=== PATIENT | female | born 1985 | race Caucasian/White ===

== ENCOUNTER 2017-09-21 09:53 | Emergency (ER) | payer SELFPAY ==
[2017-09-21] MEDS ORDERED: IBUPROFEN 400 MG TAB ONE (10:48)
--- NOTE | 2017-09-21 12:12 | RAD REPORT ---
EXAM DESCRIPTION: RAD - Ankle Left 3 View - 09/21/2017 11:55 am CLINICAL HISTORY: Trauma to left ankle and foot. COMPARISON: None. FINDINGS: Left ankle and left foot, multiple projections. No acute fracture or dislocation seen. Tiny calcaneal spurs are present.
--- NOTE | 2017-09-21 12:18 | EDPHYS ---
Physician Documentation [facility] Name: Carissa Carrera Age: 31 yrs Sex: Female : 1985 Arrival Date: 09/21/2017 Time: 09:59 Bed 11 Private MD: ED Physician Alex Gamble HPI: 09/21 10:45 This 31 yrs old Female presents to ER via Wheelchair with complaints of Foot cp Injury. 10:45 The patient presents with an injury, pain, that is acute, tenderness. The complaints cp affect the left lateral ankle and dorsum of left foot. Context: resulted from a mis-step, on skateboard, the patient is not able to bear weight, the patient is not able to ambulate. 10:45 Onset: The symptoms/episode began/occurred this morning. 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 - Social history:: Smoking status: Patient uses tobacco products, smokes one-half pack cigarettes per day. ROS: 11:00 Constitutional: Negative for body aches, chills, fever, poor PO intake. cp 11:00 Eyes: Negative for injury, pain, redness, and discharge. cp 11:00 ENT: Negative for ear pain, sore throat, difficulty swallowing, difficulty handling secretions. 11:00 Cardiovascular: Negative for chest pain, edema, palpitations. 11:00 Respiratory: Negative for cough, shortness of breath, wheezing. 11:00 Abdomen/GI: Negative for abdominal pain, vomiting, diarrhea, constipation. 11:00 Back: Negative for pain at rest, pain with movement. 11:00 MS/extremity: Positive for pain, tenderness, of the dorsum of left foot and left lateral ankle, Negative for paresthesias. 11:00 Skin: Negative for cellulitis, rash. 11:00 All other systems are negative. Exam: 11:07 Constitutional: The patient appears in no acute distress, alert, awake, well developed, cp well nourished. 11:07 Head/Face: Normocephalic, atraumatic. cp 11:07 Eyes: Periorbital structures: appear normal, Conjunctiva: normal, no exudate, no injection, Lids and lashes: appear normal, bilaterally. 11:07 ENT: External ear(s): are unremarkable, Nose: is normal, Mouth: is normal, Posterior pharynx: is normal, airway is patent. 11:07 Chest/axilla: Inspection: normal. 11:07 Cardiovascular: Rate: normal, Rhythm: regular. 11:07 Respiratory: the patient does not display signs of respiratory distress, Respirations: normal, no use of accessory muscles, no retractions, no splinting, no tachypnea, labored breathing, is not present. 11:07 Abdomen/GI: Exam negative for discomfort, distension, guarding, Inspection: abdomen appears normal. 11:07 Back: pain, is absent, ROM is normal. 11:07 Musculoskeletal/extremity: Extremities: grossly normal except: noted in the left lateral ankle and proximal left foot dorsal side: pain, tenderness, There is no evidence of deformity, Perfusion: the extremity is normally perfused throughout, Sensation intact. 11:07 Skin: cellulitis, is not appreciated, no rash present. Vital Signs: 10:12 BP 106 / 63; Pulse 68; Resp 16; Temp 98; Pulse Ox 100% on R/A; Pain 10/10; hb Procedures: 12:15 Splinting: Splint applied to left foot and left ankle using walking boot. applied by cp nurse. Examined by me, post splint application: neurovascular intact, Patient tolerated well. 12:15 Crutch training provided to patient and/or family. Return demonstration given. cp MDM: 10:19 Patient medically screened. cp 11:00 Differential diagnosis: dislocation, closed fracture, tendonitis, sprain. cp 12:14 Data reviewed: vital signs, nurses notes, radiologic studies, plain films. cp 12:15 Counseling: I had a detailed discussion with the patient and/or guardian regarding: the cp historical points, exam findings, and any diagnostic results supporting the discharge/admit diagnosis, radiology results, to return to the emergency department if symptoms worsen or persist or if there are any questions or concerns that arise at home. 12:15 Response to treatment: the patient's symptoms have mildly improved after treatment, and cp as a result, I will discharge patient. 09/21 10:40 Order name: XRAY Foot LEFT 3 View cp 09/21 10:40 Order name: XRAY Ankle LEFT 3 view cp 09/21 12:01 Order name: Walking boot; Complete Time: 12:43 cp 09/21 12:01 Order name: Crutches; Complete Time: 12:43 cp Administered Medications: 10:50 Drug: Ibuprofen 800 mg Route: PO; iw 11:40 Follow up: Response: No adverse reaction; Pain is decreased hb Disposition: 09/21/17 12:17 Discharged to Home. Impression: Unspecified sprain of left foot, Sprain of ankle - Left. - Condition is Stable. - Discharge Instructions: Ankle Sprain, Foot Sprain. - Prescriptions for Naprosyn 500 mg Oral Tablet - take 1 tablet by ORAL route 2 times per day take with food; 20 tablet. - Medication Reconciliation Form, Thank You Letter, Antibiotic Education, Prescription Opioid Use form. - Follow up: Private Physician; When: 5 - 6 days; Reason: Recheck today's complaints. - Problem is new. - Symptoms have improved. Addendum: 10/06/2017 19:43 Co-signature as Attending Physician, Alex Gamble MD I agree with the assessment and k dr plan of care. Signatures: Dispatcher [employer] EDND Alex Gamble MD MD kdr Diamond Luna RN RN iw Agustin Alarcon PA PA cp Bettina Romero, JORGE LUIS RN hb Corrections: (The following items were deleted from the chart) 09/21 12:11 10:45 Onset: The symptoms/episode began/occurred last night, cp cp 12:44 12:17 09/21/2017 12:17 Discharged to Home. Impression: Unspecified sprain of left foot; iw Sprain of ankle - Left. Condition is Stable. Forms are Medication Reconciliation Form, Thank You Letter, Antibiotic Education, Prescription Opioid Use. Follow up: Private Physician; When: 5 - 6 days; Reason: Recheck today's complaints. Problem is new. Symptoms have improved. cp
--- NOTE | 2017-09-21 12:18 | ER ---
Nurse's Notes [facility] Name: Carissa Carrera Age: 31 yrs Sex: Female : 1985 Arrival Date: 09/21/2017 Time: 09:59 Bed 11 Private MD: Diagnosis: Unspecified sprain of left foot;Sprain of ankle-Left Presentation: 09/21 10:11 Presenting complaint: Patient states: Fell off skateboard and rolled LEFT ankle today hb at 0200, now c/o pain 10/10. Unable to bear weight. Transition of care: patient was not received from another setting of care. Onset of symptoms was September 21, 2017 at 02:00. Initial Sepsis Screen: Does the patient meet any 2 criteria? No. Patient's initial sepsis screen is negative. Does the patient have a suspected source of infection? No. Patient's initial sepsis screen is negative. Care prior to arrival: None. 10:11 Method Of Arrival: Wheelchair hb 10:11 Acuity: STAS 4 hb Triage Assessment: 12:43 General: Behavior is calm, cooperative. Injury Description: Bruise. 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 - Social history:: Smoking status: Patient uses tobacco products, smokes one-half pack cigarettes per day. Screenin:13 Abuse screen: Denies threats or abuse. Denies injuries from another. Nutritional hb screening: No deficits noted. Tuberculosis screening: No symptoms or risk factors identified. Fall Risk None identified. Assessment: 10:15 General: Appears in no apparent distress. uncomfortable. Pain: Pain currently is 9 out hb of 10 on a pain scale. Neuro: Level of Consciousness is awake, alert, obeys commands, Oriented to person, place, time, situation. Cardiovascular: Capillary refill < 3 seconds Patient's skin is warm and dry. Pulses are 3+ in right dorsalis pedis artery and left dorsalis pedis artery. Respiratory: Airway is patent Trachea midline Respiratory effort is even, unlabored, Respiratory pattern is regular, symmetrical. Musculoskeletal: Reports pain in right foot and left foot. 10:15 Reassessment: Patient appears in no apparent distress at this time. Patient and/or iw family updated on plan of care and expected duration. Pain level reassessed. Patient is alert, oriented x 3, equal unlabored respirations, skin warm/dry/pink. Vital Signs: 10:12 BP 106 / 63; Pulse 68; Resp 16; Temp 98; Pulse Ox 100% on R/A; Pain 10/10; hb ED Course: 09:59 Patient arrived in ED. sb2 10:11 Bettina Romero, RN is Primary Nurse. hb 10:12 Triage completed. hb 10:12 Arm band placed on right wrist. hb 10:13 Patient has correct armband on for positive identification. Call light in reach. hb 10:18 Agustin Alarcon PA is PHCP. cp 10:19 Alex Gamble MD is Attending Physician. cp 11:46 X-ray completed. Portable x-ray completed in exam room. Patient tolerated procedure ml well. 11:49 XRAY Foot LEFT 3 View In Process Unspecified. EDMS 11:49 XRAY Ankle LEFT 3 view In Process Unspecified. EDMS 12:43 No provider procedures requiring assistance completed. Patient did not have IV access iw during this emergency room visit. Administered Medications: 10:50 Drug: Ibuprofen 800 mg Route: PO; iw 11:40 Follow up: Response: No adverse reaction; Pain is decreased hb Outcome: 12:17 Discharge ordered by MD. cp 12:43 Discharged to home ambulatory, with crutches, with family, with friend. iw 12:43 Condition: good 12:43 Discharge instructions given to patient, family, Instructed on discharge instructions, follow up and referral plans. medication usage, Demonstrated understanding of instructions, follow-up care, medications, Prescriptions given X 1. 12:44 Patient left the ED. iw Signatures: Dispatcher [employer] EDMS Diamond Luna RN RN iw Bel Costello Corey, PA PA cp Bettina Romero RN RN hb Billeau, Sheri sb2
--- NOTE | 2017-09-21 12:24 | RAD REPORT ---
EXAM DESCRIPTION: RAD - Foot Left 3 View - 09/21/2017 11:59 am CLINICAL HISTORY: Trauma to left ankle and foot. COMPARISON: None. FINDINGS: Left ankle and left foot, multiple projections. No acute fracture or dislocation seen. Tiny calcaneal spurs are present.
== END 2017-09-21 12:44 | disposition home or self-care (01) ==
LOC: ER 09:53
DX: S93.602A Unspecified sprain of left foot, initial encounter (principal); F17.210 Nicotine dependence, cigarettes, uncomplicated; Y93.51 Activity, roller skating (inline) and skateboarding; Y92.9 Unspecified place or not applicable
CPT/HCPCS: 99283

== ENCOUNTER 2020-02-09 20:31 | Emergency (ER) | payer SELFPAY ==
[2020-02-09 21:59] LABS: Absolute Lymphocytes (CBC) 1.6 K/uL (0.7-4.9); Basophils % 0.6 % (0-1.3); Hematocrit 44.4 % (36.0-45.0); Lymphocytes % 21.6 % (15.3-44.8); MPV 8.8 fL (7.6-11.3); RBC Red Blood Cell Count 4.66 M/uL (3.86-4.86)
[2020-02-09 22:09] LABS: Protime INR 0.94
[2020-02-09 22:46] LABS: ALT/SGPT 44 U/L (12-78); AST/SGOT 20 U/L (15-37); Albumin 4.4 g/dL (3.4-5.0); Alkaline Phosphatase 65 U/L (45-117); BUN Blood Urea Nitrogen 12 mg/dL (7-18); Bicarbonate 22 mmol/L (21-32); Bilirubin Direct < 0.1 mg/dL (0-0.2); Bilirubin Total 0.3 mg/dL (0.2-1.0); Glucose Level 102 mg/dL (74-106); Potassium 3.7 mmol/L (3.5-5.1); Protein, Total 8.3 g/dL (6.4-8.2); Sodium Level 144 mmol/L (136-145)
[2020-02-09 23:01] LABS: Barbiturates NEGATIVE (NEGATIVE); Benzodiazepines NEGATIVE (NEGATIVE); Cocaine NEGATIVE (NEGATIVE); METHAMPHETAM NEGATIVE (NEGATIVE); Methadone NEGATIVE (NEGATIVE); Opiates NEGATIVE (NEGATIVE); Phencyclidine NEGATIVE (NEGATIVE); THC Cannibis NEGATIVE (NEGATIVE)
[2020-02-09 23:06] LABS: Urine Blood TRACE (NEG); Urine Glucose NEGATIVE (NEG); Urine Protein 1+ (NEG); Urine Specific Gravity 1.025 (1.005-1.030)
[2020-02-09] MEDS ORDERED: NA CHLORIDE 0.9% 1,000 ML ONE (23:42)
[2020-02-10] MEDS ORDERED: ACETAMINOPHEN 325 MG TABLET ONE (00:04)
--- NOTE | 2020-02-10 02:34 | ER ---
Nurse's Notes [facility] Name: Carissa Carrera Age: 34 yrs Sex: Female : 1985 Arrival Date: 02/09/2020 Time: 20:37 Bed 17 Private MD: Diagnosis: Adjustment disorder with depressed mood;Alcohol use, unspecified with intoxication Presentation: 02/08 20:39 Chief complaint: Patient states: I was going to scrap picker my son and my ex would not let jb4 me get him. I wanted to leave and he was laying under my truck. He was telling me that I have to run him over to get past him. I told him I would rather hurt myself than him so I cut my wrist. I do not want to hurt my self or anyone else. Coronavirus screen: Client denies travel out of the [place] in the last 14 days. At this time, the client does not indicate any symptoms associated with coronavirus-19. Ebola Screen: No symptoms or risks identified at this time. Complicating Factors: There are no complicating factors for this patient. Initial Sepsis Screen: Does the patient meet any 2 criteria? HR > 90 bpm. Yes Does the patient have a suspected source of infection? No. Patient's initial sepsis screen is negative. Risk Assessment: Do you want to hurt yourself or someone else? Patient reports no desire to harm self or others. Onset of symptoms was February 09, 2020. Transition of care: patient was not received from another setting of care. 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 - Social history:: Smoking status: Patient reports the use of cigarette tobacco products, smokes one-half pack cigarettes per day, Patient uses alcohol, patient/guardian reports recent binge of alcohol consumption. Patient/guardian denies using street drugs. Screenin:50 Abuse screen: Denies threats or abuse. Nutritional screening: No deficits noted. jb4 Tuberculosis screening: No symptoms or risk factors identified. Fall Risk None identified. Assessment: 20:50 General: Appears in no apparent distress. comfortable, Behavior is cooperative, jb4 anxious, crying, Smells of alcohol. Pain: Denies pain. Neuro: Level of Consciousness is awake, alert, obeys commands, Oriented to person, place, time, situation. Cardiovascular: Patient's skin is warm and dry. Respiratory: Airway is patent Respiratory effort is even, unlabored, Respiratory pattern is regular, symmetrical. GI: No signs and/or symptoms were reported involving the gastrointestinal system. : No signs and/or symptoms were reported regarding the genitourinary system. EENT: No signs and/or symptoms were reported regarding the EENT system. Derm: Skin is pink, warm \\T\\ dry. Lacerations noted to the left forearm. Musculoskeletal: Circulation, motion, and sensation intact. Range of motion: intact in all extremities. Injury Description: Laceration sustained to dorsal aspect of left forearm is clean, superficial, 2.6 to 7.5 cm long, not bleeding, is bleeding a small amount. 21:37 Reassessment: Pt denies SI/HI at this time. Pt states that she did not want to harm ss herself, but make her boyfriend leave her alone. Pt states, "I just want to go home." Pt verbalizes understanding VAN. 22:30 Reassessment: Patient appears in no apparent distress at this time. Patient and/or jb4 family updated on plan of care and expected duration. Pain level reassessed. Patient is alert, oriented x 3, equal unlabored respirations, skin warm/dry/pink. 23:30 Reassessment: Patient appears in no apparent distress at this time. Patient and/or jb4 family updated on plan of care and expected duration. Pain level reassessed. Patient is alert, oriented x 3, equal unlabored respirations, skin warm/dry/pink. 02/09 00:30 Reassessment: Patient appears in no apparent distress at this time. Patient and/or jb4 family updated on plan of care and expected duration. Pain level reassessed. Patient is alert, oriented x 3, equal unlabored respirations, skin warm/dry/pink. 01:30 Reassessment: Patient and/or family updated on plan of care and expected duration. Pain jb4 level reassessed. Patient is alert, oriented x 3, equal unlabored respirations, skin warm/dry/pink. Pt is resting calmly in bed. No s/s of pain or distress reported or observed. 02:22 Reassessment: Spoke with [facility] who states OK to discharge patient now and to follow up outpatient as patient denies SI/ HI. 02:50 Reassessment: Patient appears in no apparent distress at this time. Patient and/or jb4 family updated on plan of care and expected duration. Pain level reassessed. Patient is alert, oriented x 3, equal unlabored respirations, skin warm/dry/pink. Belongings returned to pt. 03:12 Reassessment: Patient and/or family updated on plan of care and expected duration. Pain jb4 level reassessed. Patient is alert, oriented x 3, equal unlabored respirations, skin warm/dry/pink. Bandaged applied to lacerations with triple antibiotic ointment. Pt verbalized understanding of d/c and follow up instructions. Denies questions or concerns. Ambulated out of ED with steady gait. D/c'ed home with friend. Psych: 02/08 20:50 Subjective: Patient's mood is sad, Delusions are denied, Hallucinations are denied jb4 Having thoughts of Pt denies current suicidal or homicidal ideations. Objective: Patient is cooperative, Speech is normal, Affect is appropriate, Patient has mutilated themselves by Multiple lacerations noted to the left forearm. Interventions: Removed personal items and placed in bag. Patient placed in hospital gown. Searched person for dangerous items. Urine collected and sent for urine drug test. Belonging list filled out. Suicide Risk Assessment: Sad Person Scale: Sex of patient: Female: Score 0 points. Age of patient: Score 1 point if patient 15-34. Depression: Score 1 point if signs of depression are present. Previous Attempt: Score 1 point if patient has previously attempted suicide. Substance Abuse: Score 1 point if patient abuses alcohol or drugs. Rational Thinking: Score 0 point if patient has rational thinking. Social Support: Score 0 if social support is present/available. Organized Plan: Score 0 if patient did not have an organized plan in place. Relationship: Score 1 point if patient is , , , or for a single male Chronic Sickness: Score 0 point if patient does not have a chronic illness, debilitating, or severe disorder. TOTAL POINTS: If total points are 5-6, proposed clinical action is to strongly consider hospitalization, depending upon confidence in the follow-up arrangement. Implement suicide precautions. Safety Checks: Personal items have been removed. Door is open. No visitors are present at this time. Patient uses Alcohol. Commitment: Patient will be an involuntary commitment. Vital Signs: 20:39 BP 123 / 74; Pulse 122; Resp 18; Temp 98.4(TE); Pulse Ox 98% on R/A; Weight 59.87 kg jb4 (R); Height 5 ft. 1 in. (154.94 cm) (R); Pain 0/10; 23:22 BP 105 / 76 RA Sitting (auto/reg); Pulse 84; Pulse Ox 100% on R/A; Pain 7/10; jp3 02/09 03:00 BP 131 / 93; Pulse 75; Resp 16; Pulse Ox 98% on R/A; jb4 02/08 20:39 Body Mass Index 24.94 (59.87 kg, 154.94 cm) jb4 02/08 23:22 Pain rating is related to Pt headache jp3 ED Course: 20:37 Patient arrived in ED. ss 20:38 Cristofer Veliz, JORGE LUIS is Primary Nurse. jb4 20:39 Arm band placed on right wrist. jb4 20:42 Triage completed. jb4 20:45 Jose Haro NP is PHCP. pm1 20:45 Kenneth Freedman MD is Attending Physician. pm1 20:50 Patient has correct armband on for positive identification. Bed in low position. Call jb4 light in reach. Side rails up X 1. Pulse ox on. NIBP on. 21:50 Initial lab(s) drawn, by fl, sent to lab. Inserted saline lock: 20 gauge in right jb4 forearm, using aseptic technique. Blood collected. 02/09 01:48 contacted [facility] spoke with Iman to have a screener evaluate patient. mw2 03:14 No provider procedures requiring assistance completed. IV discontinued, intact, jb4 bleeding controlled, No redness/swelling at site. Pressure dressing applied. Administered Medications: 02/08 23:27 Not Given (Patient Refused): Tetanus-Diphtheria Toxoid Adult 0.5 ml IM once jb4 23:30 Drug: NS 0.9% 1000 ml Route: IV; Rate: 1000 ml; Site: right forearm; jb4 02/09 00:30 Follow up: Response: No adverse reaction; IV Status: Completed infusion jb4 00:00 Drug: Tylenol 650 mg Route: PO; jb4 01:00 Follow up: Response: No adverse reaction; Pain is decreased jb4 Outcome: 02:33 Discharge ordered by . tw4 03:14 Discharged to home ambulatory, with friend. jb4 03:14 Condition: stable 03:14 Discharge instructions given to patient, Instructed on discharge instructions, follow up and referral plans. Demonstrated understanding of instructions, follow-up care. 03:14 Patient left the ED. jb4 Signatures: Barb Madrid RN RN ss Jose Haro, M[employer] INSE[employer]ER pm1 Cristofer Veliz RN RN jb4 Kenneth Freedman MD MD tw4 Florencio Agarwal mw2 Hoang Wong jp3 Corrections: (The following items were deleted from the chart) 03:16 03:12 Reassessment: Patient and/or family updated on plan of care and expected jb4 duration. Pain level reassessed. Patient is alert, oriented x 3, equal unlabored respirations, skin warm/dry/pink. Pt verbalized understanding of d/c and follow up instructions. Denies questions or concerns. Ambulated out of ED with steady gait. D/c'ed home with friend. jb4
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
[2020-02-10 12:56] VITALS: TEMP 98.4
[2020-02-10 12:58] VITALS: BP 131/93; O2SAT 98
--- NOTE | 2020-02-10 20:01 | EKG ---
Test Date: 2020-02-09 Test Time: 22:23:24 Boat Cleaner: ANDREW MEASUREMENT RESULTS: Intervals: Rate: 92 TX: 132 QRSD: 86 QT: 364 QTc: 450 [place]: P: 68 TX: 132 QRS: 61 T: 49 INTERPRETIVE STATEMENTS: Normal sinus rhythm Possible Left atrial enlargement RSR' or QR pattern in V1 suggests right ventricular conduction delay Borderline ECG No previous ECG available for comparison Electronically Signed On 02-10-20 19:59:20 CDT by Gaudencio Stewart
== END 2020-02-10 03:14 | disposition home or self-care (01) ==
LOC: ER 20:31
DX: F43.21 Adjustment disorder with depressed mood (principal); F10.129 Alcohol abuse with intoxication, unspecified; F17.210 Nicotine dependence, cigarettes, uncomplicated; X78.1XXA Intentional self-harm by knife, initial encounter; Y93.89 Activity, other specified; Y92.009 Unspecified place in unspecified non-institutional (private) residence as the place of occurrence of the external cause
CPT/HCPCS: 36415; 80048; 80076; 80307; 80320; 80329; 81003; 81025; 85025; 85610; 85730; 93005; 96360; 99285; J7030

== ENCOUNTER 2020-06-08 | Emergency (ER) | payer SELFPAY ==
--- OUTSIDE RECORDS SUMMARY | 2020-06-08 11:52 | XMS REPORT | Continuity of Care Document ---
:1985 Author Organization [facility] t Address [address] [place] [address] Care Team Providers Name Role Phone Althea Ha Attending Clinician [phone] Problems This patient has no known problems. Allergies, Adverse Reactions, Alerts This patient has no known allergies or adverse reactions. Medications This patient has no known medications. Procedures This patient has no known procedures. Encounters Start End Encounter Admission Attending Care Care Encounter Source Date/Time Date/Time Type Type Clinicians Facility Department ID 2019-02-21 2019-02-21 Routine RONI Jansen [id number] 13:57:58 14:52:17 Althea Mendez RESTAURANT GREETER [id number] Visit REGIONAL [id number] MATERNAL [id number] & CHILD [address] [place] [address] Results This patient has no known results.
--- NOTE | 2020-06-08 13:42 | EDPHYS ---
Physician Documentation [facility] Name: Carissa Carrera Age: 34 yrs Sex: Female : 1985 Arrival Date: 06/08/2020 Time: 11:56 Bed 13 Private MD: ED Physician Agustin Ybarra HPI: 06/08 13:00 This 34 yrs old Female presents to ER via Ambulatory with complaints of Eye cp Problem. 13:00 The patient is experiencing redness, to the right eye, caused by an unknown mechanism. cp Onset: The symptoms/episode began/occurred yesterday. Duration: the symptoms are continuous. Associated signs and symptoms: Pertinent negatives: fever, vision changes, foreign body sensation. Patient does not utilize any form of vision correction. 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 - Social history:: Smoking status: . ROS: 13:05 Eyes: Positive for redness, of the right eye, Negative for discharge, pain, visual cp disturbance. 13:05 Constitutional: Negative for fever. cp 13:05 ENT: Negative for ear pain, sore throat, difficulty swallowing, difficulty handling secretions. 13:05 Respiratory: Negative for cough. 13:05 Abdomen/GI: Negative for abdominal pain, nausea, vomiting, and diarrhea. 13:05 Skin: Negative for rash. 13:05 Neuro: Negative for headache. 13:05 All other systems are negative. Exam: 13:10 Constitutional: The patient appears in no acute distress, alert, awake, well developed, cp well nourished. 13:10 Head/Face: Normocephalic, atraumatic. cp 13:10 Eyes: Periorbital structures: appear normal, Pupils: equal, round, and reactive to light and accomodation, Extraocular movements: intact throughout, Conjunctiva: injected, in the right eye, Lids and lashes: appear normal, bilaterally. 13:10 ENT: External ear(s): are unremarkable, Nose: is normal, Mouth: Lips: moist, Posterior pharynx: Airway: no evidence of obstruction, patent. 13:10 Neck: Lymph nodes: no appreciated lymphadenopathy. 13:10 Cardiovascular: Rate: normal. 13:10 Respiratory: the patient does not display signs of respiratory distress, Respirations: normal. 13:10 Skin: no rash present. 13:30 Visual Acuity: I have reviewed the nursing documentation. Vital Signs: 12:08 BP 117 / 87; Pulse 96; Resp 18; Temp 98.3(TE); Pulse Ox 97% on R/A; Weight 58.06 kg tw2 (R); Height 5 ft. 1 in. (154.94 cm); Pain 9/10; 13:29 BP 132 / 76; Pulse 89; Resp 16 S; Pulse Ox 98% on R/A; ca1 12:08 Body Mass Index 24.19 (58.06 kg, 154.94 cm) tw2 Visual Acuity: 13:25 Left Eye Visual acuity 20/100, ; Right Eye Visual acuity 20/200, ; Both Eyes Visual ca1 acuity 20/100; Without Lenses; Pt states, "am supposed to wear glasses but I don't" MDM: 12:47 Patient medically screened. [facility] 13:30 Differential diagnosis: Corneal abrasion of right eye. Foreign body in right eye. Acute cp iritis of right eye. Allergic conjunctivitis in right eye. Infectious conjunctivitis in. 13:40 Data reviewed: vital signs, nurses notes, and as a result, I will discharge patient. 06/08 12:52 Order name: Visual Acuity; Complete Time: 13:24 cp Administered Medications: No medications were administered Disposition: 13:55 Chart complete. 06/09 06:53 Co-signature as Attending Physician, Agustin Ybarra MD I agree with the assessment and [facility] plan of care. Disposition: 06/08/20 13:42 Discharged to Home. Impression: Conjunctivitis - right eye. - Condition is Stable. - Discharge Instructions: Bacterial Conjunctivitis. - Prescriptions for Gentamicin 0.3 % Ophthalmic Drops - instill 1 drop by OPHTHALMIC route every 4 hours for 7 days; 1 bottle. - Medication Reconciliation Form, Thank You Letter, Antibiotic Education, Prescription Opioid Use, Work release form form. - Follow up: Delicia Hummel MD; When: 1 - 2 days; Reason: Worsening of condition. - Problem is new. - Symptoms are unchanged. Signatures: Agustin Ybarra MD MD cha Page, Corey, PA PA cp Dawn Castañeda, RN RN tw2 Patricia Kimble RN RN ca1 Corrections: (The following items were deleted from the chart) 06/08 13:51 13:42 06/08/2020 13:42 Discharged to Home. Impression: Conjunctivitis - right eye. ca1 Condition is Stable. Forms are Medication Reconciliation Form, Thank You Letter, Antibiotic Education, Prescription Opioid Use. Follow up: Delicia Hummel; When: 1 - 2 days; Reason: Worsening of condition. Problem is new. Symptoms are unchanged. cp
--- NOTE | 2020-06-08 13:42 | ER ---
Nurse's Notes [facility] Name: Carissa Carrera Age: 34 yrs Sex: Female : 1985 Arrival Date: 06/08/2020 Time: 11:56 Bed 13 Private MD: Diagnosis: Conjunctivitis-right eye Presentation: 06/08 12:08 Chief complaint: Patient states: every couple of years i get it, it turns into pink tw2 eye, it started yesterday, BOTH eyes. Coronavirus screen: At this time, the client does not indicate any symptoms associated with coronavirus-19. Ebola Screen: Patient denies travel to an Ebola-affected area in the 21 days before illness onset. Initial Sepsis Screen: Does the patient meet any 2 criteria? HR > 90 bpm. No. Patient's initial sepsis screen is negative. Does the patient have a suspected source of infection? No. Patient's initial sepsis screen is negative. Risk Assessment: Do you want to hurt yourself or someone else? Patient reports no desire to harm self or others. Onset of symptoms was June 08, 2020. 12:08 Method Of Arrival: Ambulatory tw2 12:08 Acuity: STAS 4 tw2 Triage Assessment: 12:08 General: Appears in no apparent distress. slender, well groomed, Behavior is calm, tw2 cooperative, appropriate for age. Pain: Complains of pain in right eye and left eye. EENT: Reports redness b/l eyes. 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 - Social history:: Smoking status: . Screenin:10 Abuse screen: Denies threats or abuse. Denies injuries from another. Nutritional bp screening: No deficits noted. Tuberculosis screening: No symptoms or risk factors identified. Fall Risk None identified. Assessment: 13:10 General: Appears in no apparent distress. comfortable, Behavior is calm, cooperative, ca1 appropriate for age. Pain: Complains of pain in right eye Pain currently is 7 out of 10 on a pain scale. Pain began 1 day ago. Neuro: Level of Consciousness is awake, alert, obeys commands, Oriented to person, place, time, situation. EENT: Eyes are tearing on outer aspect of conjuctiva of right eye, iris of right eye and inner aspect of conjuctiva of right eye with exudate noted from outer aspect of conjuctiva of right eye, iris of right eye and inner aspect of conjuctiva of right eye. Derm: Skin is intact, is healthy with good turgor, Skin is pink, warm \\T\\ dry. Musculoskeletal: Circulation, motion, and sensation intact. Capillary refill < 3 seconds. 13:45 Reassessment: Patient appears in no apparent distress at this time. Patient is alert, ca1 oriented x 3, equal unlabored respirations, skin warm/dry/pink. Vital Signs: 12:08 BP 117 / 87; Pulse 96; Resp 18; Temp 98.3(TE); Pulse Ox 97% on R/A; Weight 58.06 kg tw2 (R); Height 5 ft. 1 in. (154.94 cm); Pain 9/10; 13:29 BP 132 / 76; Pulse 89; Resp 16 S; Pulse Ox 98% on R/A; ca1 12:08 Body Mass Index 24.19 (58.06 kg, 154.94 cm) tw2 Visual Acuity: 13:25 Left Eye Visual acuity 20/100, ; Right Eye Visual acuity 20/200, ; Both Eyes Visual ca1 acuity 20/100; Without Lenses; Pt states, "am supposed to wear glasses but I don't" ED Course: 11:56 Patient arrived in ED. ag3 12:08 Arm band placed on. tw2 12:09 Triage completed. tw2 12:10 Patient has correct armband on for positive identification. Bed in low position. Call bp light in reach. Side rails up X2. 12:42 Brian Resendez, JORGE LUIS is Primary Nurse. bp 12:46 Agustin Alarcon PA is PHCP. cp 12:46 Agustin Ybarra MD is Attending Physician. cp 13:41 Delicia Hummel MD is Referral Physician. cp 13:45 No provider procedures requiring assistance completed. Patient did not have IV access ca1 during this emergency room visit. Administered Medications: No medications were administered Outcome: 13:42 Discharge ordered by MD. cp 13:50 Discharged to home ambulatory. ca1 13:50 Condition: stable 13:50 Discharge instructions given to patient, Instructed on discharge instructions, follow up and referral plans. medication usage, Demonstrated understanding of instructions, follow-up care, medications, Prescriptions given X 1. 13:51 Patient left the ED. ca1 Signatures: Agustin Alarcon PA PA cp Wise, Tara, RN RN tw2 Brian Resendez RN RN bp Gabi Trevizo ag3 Patricia Kimble RN RN ca1
== END 2020-06-08 13:51 | disposition home or self-care (01) ==
DX: H10.9 Unspecified conjunctivitis (principal)
CPT/HCPCS: 99282